=== PATIENT | female | born 2000 | race Caucasian/White ===

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

== ENCOUNTER 2021-05-23 14:11 | Emergency (ER) | payer OTHER ==
[~2021-05-23] VITALS: Ht 172.7 cm; Wt 72.7 kg
[2021-05-23] MEDS ORDERED: IV NORMAL SALINE 1,000ML 1,000 ML IV ONE (14:30)
--- NOTE | 2021-05-23 14:40 | PHYS DOC ---
Past History Past Medical History: No Pertinent History Past Surgical History: Tonsillectomy Smoking: Non-smoker Alcohol Use: None Drug Use: None General Adult EDM: Chief Complaint: OVERDOSE Problems: (1) Substance use HPI: HPI: Patient is a 20-year-old female who presents to the emergency department after she took a "pill" that she states was fentanyl earlier today. She states that she passed out after she took the pill. She otherwise has no complaints at this time besides feeling tired. She denies any trauma today and has no further concerns. She denies alcohol use. Denies homicidal or suicidal ideations or intentional overdose. The patient denies nausea, vomiting, fever, chills, chest pain, shortness of breath, abdominal pain, urinary symptoms, cough, recent trauma, or any other complaints. Review of Systems: Review of Systems: ROS is otherwise negative except for what was mentioned in the HPI. Current Medications: Current Meds: Current Medications Medications (Trade) Dose Ordered Sig/Macy Start Time Stop Time Status Last Admin Dose Admin Sodium Chloride 1,000 ml @ 1,000 mls/hr 1X ONCE 05/23/21 14:30 05/23/21 15:29 UNV Allergies: Allergies: Allergies Coded Allergies Type Severity Reaction Last Updated Verified No Known Drug Allergies 09/24/17 No Physical Exam: PE: Constitutional: No acute distress, non-toxic appearance. HENT: Atraumatic, bilateral external ears normal, nose normal. Eyes: PERRLA, EOMI, conjunctiva normal, no discharge. Neck: Normal range of motion, supple, no stridor. Cardiovascular: Heart rate regular rhythm. 2+ radial pulses Lungs & Thorax: No respiratory distress, symmetrical expansion. Bilateral breath sounds clear to auscultation Abdomen: Soft, no tenderness Skin: Warm, dry. Extremities: No tenderness, no cyanosis, ROM intact, no edema. Neurologic: Alert and oriented X 3, normal motor function, normal sensory function, no focal deficits noted. Non ataxic gait. GCS 15. Psychologic: Affect normal, judgment normal, mood normal. Nonsuicidal. Current Patient Data: Labs: Laboratory Tests Test 05/23/21 14:22 Glucose (Fingerstick) 157 mg/dL (70-99) H Vital Signs: Vital Signs Date Time Temp Pulse Resp B/P (MAP) Pulse Ox O2 Delivery O2 Flow Rate FiO2 05/23/21 14:14 98.6 129 18 130/76 96 Room Air EKG: EKG: Sinus tachycardia rate of 102, no ST-T wave changes, no ectopic beats, normal axis, normal NM, QRS, and QTc intervals. Impression: Normal EKG. interpreted by me, Dash Patel D.O. Heart Score: C/O Chest Pain: No Course & Med Decision Making: Course & Med Decision Making Patient was seen after self reported drug ingestion. She is not suicidal or danger to herself or others. She is awake and alert, ANO x3, GCS 15, has capacity. Her boyfriend is picking her up in the emergency department. She has no further concerns and is amenable to leaving with her boyfriend and feels like this is a safe disposition. She is maintaining her airway her vital signs are stable her EKG was within normal limits and her test was negative. Glucose within normal limits as well. Departure Departure: Impression: Primary Impression: Drug abuse Disposition: 01 HOME / SELF CARE / HOMELESS Condition: STABLE Referrals: PCP,UNKNOWN (PCP) Patient Instructions: Drug Abuse, FAQs Additional Instructions: You were seen in the emergency department and your health condition was deemed not to require admission to the hospital. It is important to realize that we can only evaluate you during the time that you are in her department. Occasionally health conditions can worsen upon leaving the emergency department. If this were to happen, please return to and allow us the opportunity to reevaluate you. It is a pleasure to take care of your health needs. Return to the ER if your symptoms worsen, do not improve, or if you develop additional symptoms that are concerning to you DASH PATEL DO May 23, 2021 14:40
[2021-05-23 15:00] VITALS: BP 129/74
--- NOTE | 2021-05-23 21:28 | EKG ---
[address] [address] Test Date: 2021-05-23 Test Time: 14:26:57 Pat Name: JESUS BERNAL Department: Room: Gender: F Preboarder: : 2000 Requested By: LAKEISHA TALAMANTES Order Number: [id number] Reading MD: Measurements Intervals [place] Rate: 102 P: 51 HI: 120 QRS: 23 QRSD: 80 T: 20 QT: 336 QTc: 442 Interpretive Statements SINUS TACHYCARDIA OTHERWISE NORMAL ECG RI6.02 No previous ECG available for comparison
== END 2021-05-23 15:00 | disposition home or self-care (01) ==
LOC: ER 14:11
DX: F19.10 Other psychoactive substance abuse, uncomplicated (principal); R00.0 Tachycardia, unspecified; Z32.02 Encounter for pregnancy test, result negative
CPT/HCPCS: 81025; 82947; 93005; 99283

== ENCOUNTER 2022-02-27 05:51 | Emergency (ER) | payer OTHER ==
[~2022-02-27] VITALS: Ht 172.7 cm; Wt 67.2 kg
[2022-02-27 06:00] VITALS: BP 132/86
[2022-02-27] MEDS ORDERED: CLIN150C16 PO (06:36)
--- NOTE | 2022-02-27 06:37 | PHYS DOC ---
Past History Past Medical History: No Pertinent History Additional Past Medical Histor: hx of overdose last yr Past Surgical History: Tonsillectomy, Other Additional Past Surgical Histo: wisdom teeth Smoking: Non-smoker Alcohol Use: Rarely Drug Use: None General Adult EDM: Chief Complaint: ABSCESS HPI: HPI: Patient is a 20-year-old female coming in for a "boil" on her inner left upper arm. Patient states is gotten more painful. She has not had any drainage. No systemic complaints. No history of abscesses in the past. Tetanus up-to-date. Review of Systems: Review of Systems: All other systems within normal limits except for as noted in the HPI Allergies: Allergies: Allergies Coded Allergies Type Severity Reaction Last Updated Verified No Known Drug Allergies 02/27/22 No Physical Exam: PE: Constitutional: Well developed, well nourished, no acute distress, non-toxic appearance. [] HENT: Normocephalic, atraumatic, bilateral external ears normal, nose normal. [] Eyes: PERRLA, conjunctiva normal, no discharge. [] Neck: No rigidity, supple, no stridor. [] Cardiovascular: Regular rate and rhythm, brisk cap refill [] Lungs & Thorax: Non labored symmetric respirations, no tachypnea or respiratory distress [] Abdomen: Soft, nondistended. Skin: Warm, dry, no erythema, no rash. Swelling and erythema under right upper arm, no drainage or fluctuance [] Back: Unremarkable Extremities: No deformities, range of motion grossly intact, no lower extremity edema [] Neurologic: Alert and oriented X 3, no focal deficits noted. [] Psychologic: Affect normal, judgement normal, mood normal. [] Current Patient Data: Vital Signs: Vital Signs Date Time Temp Pulse Resp B/P (MAP) Pulse Ox O2 Delivery O2 Flow Rate FiO2 02/27/22 06:00 97.9 99 20 132/86 (101) 96 Room Air EKG: EKG: [] Radiology/Procedures: Radiology/Procedures: [] Heart Score: C/O Chest Pain: No Risk Factors: Risk Factors: DM, Current or recent (<one month) smoker, HTN, HLP, family history of CAD, obesity. Risk Scores: Score 0 - 3: 2.5% MACE over next 6 weeks - Discharge Home Score 4 - 6: 20.3% MACE over next 6 weeks - Admit for Clinical Observation Score 7 - 10: 72.7% MACE over next 6 weeks - Early Invasive Strategies Course & Med Decision Making: Course & Med Decision Making Deep area of early likely abscess formation with surrounding induration and cellulitis. We will start with antibiotics with warm compresses. No identifiable collection of fluid that would be amenable to drainage. Dragon Disclaimer: Dragon Disclaimer: This electronic medical record was generated, in whole or in part, using a voice recognition dictation system. Departure Departure: Impression: Primary Impression: Cellulitis and abscess of upper extremity Disposition: HOME / SELF CARE / HOMELESS Condition: STABLE Referrals: PCP,UNKNOWN (PCP) Patient Instructions: Cellulitis, [id number] Scripts Clindamycin Hcl (CLINDAMYCIN HCL) 150 Mg Capsule 3 CAP PO TID for antibiotic for 7 Days, #63 CAP Prov: ADRIAN BUCKLEY MD 02/27/22 ADRIAN BUCKLEY MD February 27, 2022 06:37
== END 2022-02-27 06:45 | disposition home or self-care (01) ==
LOC: ER 05:51
DX: L02.413 Cutaneous abscess of right upper limb (principal); L03.113 Cellulitis of right upper limb
CPT/HCPCS: 99283